=== PATIENT | female | born 1925 | race Caucasian/White ===

== ENCOUNTER → 2016-09-16 | Outpatient (CLI) | payer MEDICARE ==
[~2016-09-16] MED LIST: CALCTAB41 PO; FISH100049 PO; LOVA20TA2 PO; VITA-121 PO
[2016-09-16 11:28] LABS: MEAN CORPUSCULAR HEMOGLOBIN 32.1 pg (27.0-33.0); MEAN CORPUSCULAR HGB CONC 33.3 g/dl (32.0-36.5); MEAN CORPUSCULAR VOLUME 96.4 fl (80.0-96.0); RED CELL DISTRIBUTION WIDTH 12.8 % (11.5-14.5); WHITE BLOOD COUNT 5.7 K/mm3 (4.0-10.0)
[2016-09-16 11:30] LABS: INR 0.9
[2016-09-16 11:55] LABS: ALBUMIN 3.7 GM/DL (3.2-5.2); ALBUMIN/GLOBULIN RATIO 1.09 (1.00-1.93); ALKALINE PHOSPHATASE 78 U/L (45-117); ALT/SGPT 19 U/L (12-78); ANION GAP 4 MEQ/L (8-16); AST/SGOT 17 U/L (15-37); BILIRUBIN,TOTAL 0.4 MG/DL (0.2-1.0); BLOOD UREA NITROGEN 18 MG/DL (7-18); CALCIUM LEVEL 9.4 MG/DL (8.8-10.2); CARBON DIOXIDE LEVEL 34 MEQ/L (21-32); CHLORIDE LEVEL 103 MEQ/L (98-107); GLOMERULAR FILTRATION RATE > 60.0 (>32); GLUCOSE, FASTING 75 MG/DL (83-110); POTASSIUM SERUM 4.2 MEQ/L (3.5-5.1); SODIUM LEVEL 141 MEQ/L (136-145); TOTAL PROTEIN 7.1 GM/DL (6.4-8.2)
--- NOTE | 2016-09-16 17:03 | REP ---
CHEST, TWO VIEWS: HISTORY: Preoperative assessment. COMPARISON: None. In the right lung base, in the CP angle, there is a 7 mm sized nodular density. The lung krishna are otherwise clear. The heart is not enlarged. The bones are demineralized and there is mild degenerative changes. IMPRESSION: Right lung base nodular density as described above of uncertain etiology. It is quite dense, however, since there are no priors for comparison followup with contrast enhanced CT examination of the chest may be warranted. Signed by Truman Ren DO 09/16/2016 06:03 P
--- NOTE | 2016-09-16 22:35 | ECGEPIP ---
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 Poor R-wave progression. Low limb lead voltages. POSSIBLE ANTERIOR MYOCARDIAL INFARCTION, OF INDETERMINATE AGE Electronically Signed On 09-16-2016 22:34:37 EDT by Ja Benavides
== END ==
LOC: M ADMPAT 10:06
PROVIDERS: ATTEND Orthopaedic Surgery
DX: Z01.818 Encounter for other preprocedural examination (principal); M16.12 Unilateral primary osteoarthritis, left hip; R91.8 Other nonspecific abnormal finding of lung field; Z79.899 Other long term (current) drug therapy

== ENCOUNTER 2016-09-23 14:30 | Inpatient (IN) | payer MEDICARE ==
[2016-09-16 10:53] VITALS: BP 128/72
[~2016-09-23] VITALS: Ht 154.9 cm; Wt 53.0 kg
--- NOTE | 2016-09-25 11:33 | HPE ---
DATE OF ANTICIPATED ADMISSION: 09/29/2016 ATTENDING PHYSICIAN: Dr. Taran Watkins CHIEF COMPLAINT: Left hip pain and stiffness. HISTORY: The patient is a pleasant 89-year-old female presenting to the clinic with left hip pain and stiffness. She has failed to improve with conservative measures. She has pain with activities of daily living and weight bearing activities. She has consented for an elective left total hip arthroplasty with Dr. Watkins. Medical optimization pending with Dr. Prabhakar and is not present for review today. CURRENT MEDICATIONS: - Lovastatin 20 mg daily - vitamin D 2000 units daily - calcium with vitamin D 1000/800 mg daily - Tramadol 50 mg every 4 to 6 hours as needed - acetaminophen 500 mg one to two every 6 hours for breakthrough pain ALLERGIES: No known drug allergies. PAST MEDICAL HISTORY: 1. Hyperlipidemia. 2. Left hip osteoarthritis. PAST SURGICAL HISTORY: Oophorectomy. FAMILY HISTORY: Both parents with history of hypertension and heart disease. SOCIAL HISTORY: The patient denies smoking and denies alcohol use. The patient is and lives at home with her . REVIEW OF SYSTEMS: The patient denies fevers, chills, nausea, vomiting, or diarrhea. She denies chest pain, shortness of breath, or cough. She denies any recent upper respiratory infection or urinary tract infection symptoms. The patient continues to have left hip pain with weight bearing activities. PHYSICAL EXAMINATION: Well nourished, well developed female in no apparent distress. NECK: Supple without lymphadenopathy or jugular venous distention (JVD). HEART: Regular rate and rhythm. LUNGS: Clear to auscultation bilaterally. ABDOMEN: Soft, nontender to palpation. Bowel sounds are present. MUSCULOSKELETAL: Inspection of the left hip revealed no gross abnormalities. Her skin is intact. There is some hip irritability elicited with range of motion. Her calf is soft and nontender to palpation with no palpable cords noted. Pedal pulses are palpable. Capillary refill is brisk and her sensation is intact. VITAL SIGNS: Height is 5 feet 1 inches. Weight 120 pounds. Temperature 98.1, blood pressure 118/64, heart rate 64, respirations 16. LABORATORY DATA: Chest x-ray showed right lung base nodular density of uncertain etiology. Contrast enhanced CT examination of the chest may be warranted. EKG showed sinus rhythm, right ventricular conduction delay, poor R wave progression. Low limb lead voltages. Possible anterior myocardial infarction of indeterminate age. Urinalysis negative with no growth on urine culture. Comprehensive metabolic profile: Fasting glucose decreased to 75, BUN 18, creatinine for GFR is 0.80, GFR greater than 60. Sodium 141, potassium 4.2, chloride 103, carbon dioxide elevated at 34, anion gap decreased at 4, calcium 9.4, AST 17, ALT 19, alkaline phosphatase 78, total bilirubin 0.4, total protein 7.1, albumin 3.7, albumin-globulin ratio 1.09. Complete blood count: WBC 5.7, RBC 4.45, hemoglobin 14.3, hematocrit 42.9, platelets 273, ESR 18, prothrombin time 12.3, INR 0.90. Nasal and sinus culture showed normal elis. ASSESSMENT AND PLAN: 1. Left hip osteoarthritis with x-rays notable for end stage degenerative changes. The patient has consented for an elective left total hip arthroplasty with Dr. Watkins. Medical optimization is pending with Dr. Prabhakar. 2. Nodular density noted on chest x-ray. Contrast enhanced CT scan recommended. This should not delay surgery. [facility]
[2016-09-29] VITALS (10 sets, daily range): BP systolic 119–144; BP diastolic 56–77; O2SAT 98
[2016-09-29] MEDS ORDERED: LR 1,000 ML IV SCH ×2 (07:00→11:00)
[2016-09-29] MEDS ORDERED: ceFAZolin SOD 1 GM in D5W MINI-BAG PLUS 50 ML IV ONE (07:00)
[2016-09-29] MEDS ORDERED: TRANEXAMIC ACID 100 MG/ML 10ML VIAL As Ordered ONE (07:20)
[2016-09-29] MEDS ORDERED: EPINEPHrine INJ 1 MG/ML 1ML AMP As Ordered ONE (07:21)
[2016-09-29] MEDS ORDERED: BUPIVACAINE HCL 0.25% 30 ML VIAL As Ordered ONE (07:21)
[2016-09-29] MEDS ORDERED: ceFAZolin 1GM INJ (J0690) As Ordered ONE (07:21)
[2016-09-29] MEDS ORDERED: fentaNYL 100 MCG/2 ML INJECTION (J3010) As Ordered ONE ×2 (07:51→08:39)
[2016-09-29] MEDS ORDERED: MIDAZOLAM INJ 2 MG/2 ML VIAL (J2250) As Ordered ONE (07:51)
--- NOTE | 2016-09-29 08:27 | IPN ---
DATE: 09/29/2016 The patient is seen and examined. She wished to have a left total hip arthroplasty. She understands the nature this, the risks of bleeding, infection, damage to nerves, vessels, persistent pain, wear loosening, dislocation, leg length inequality, blood clots, medical problems, among others. Preop clearance has been obtained. She wishes to proceed.
[2016-09-29] MEDS ORDERED: PATIENT IS CURRENTLY ON AN ON-Q PAIN BUSTER PAIN RELIEF SYSTEM XX SCH (08:45)
[2016-09-29] MEDS ORDERED: PROPOFOL 200 MG/20 ML VIAL As Ordered ONE (09:05)
[2016-09-29] MEDS ORDERED: LIDOCAINE 2% INJ 100 MG/5 ML SDV (FOR ANES.) As Ordered ONE (09:23)
[2016-09-29] MEDS ORDERED: PHENYLephrine HCL 500 MCG/5 ML (100MCG/ML) SYRINGE (J2370) As Ordered ONE (09:34)
[2016-09-29] MEDS ORDERED: MORPHINE 1MG/ML IN 0.9% NACL 100ML IV BAG As Ordered ONE (10:05)
[2016-09-29] MEDS ORDERED: NALOXONE INJ 0.4 MG/1 ML VIAL (J2310) IV PRN (11:00)
[2016-09-29] MEDS ORDERED: FLEET ENEMA PR PRN (11:00)
[2016-09-29] MEDS ORDERED: MORPHINE 1MG/ML IN 0.9% NACL 100ML IV BAG IV PRN (11:00)
[2016-09-29] MEDS ORDERED: ACETAMINOPHEN TAB 650MG DOSE (2X325MG) PO PRN (11:00)
[2016-09-29] MEDS ORDERED: fentaNYL 100 MCG/2 ML INJECTION (J3010) IV PRN (11:00)
[2016-09-29] MEDS ORDERED: diphenhydrAMINE INJ 50MG/ML VIAL (J1200) IV PRN (11:00)
[2016-09-29] MEDS ORDERED: ONDANSETRON 4MG/2ML VIAL (J2405) IV PRN ×3 (11:00)
[2016-09-29] MEDS ORDERED: EPIDURAL/PCA KEYS XX PRN (11:00)
[2016-09-29] MEDS ORDERED: NALBUPHINE HCL 10 MG/ML AMP (J2300) IV PRN (11:00)
[2016-09-29] MEDS ORDERED: WARFARIN SOD 5 MG TAB PO SCH (17:00)
[2016-09-29] MEDS: ceFAZolin SOD 1 GM in D5W MINI-BAG PLUS 50 ML IV SCH (17:33)
[2016-09-29] MEDS: LR 1,000 ML IV SCH ×2 (17:35→19:41)
--- NOTE | 2016-09-29 22:47 | RO ---
DATE OF PROCEDURE: 09/29/2016 PREOPERATIVE DIAGNOSIS: Left hip osteoarthritis. POSTOPERATIVE DIAGNOSIS: Left hip osteoarthritis. PROCEDURE: Left total hip arthroplasty using a [place] size 50 cup, a 32 head standard liner and a size 6 standard [place] stem Press-Fit. SURGEON: Dr. Taran Watkins LABORER AMMUNITION ASSEMBLY: Hussein Sena ANESTHESIA: Spinal. ESTIMATED BLOOD LOSS: 50 mL. COMPLICATIONS: None. INDICATIONS: This is a very healthy 89-year-old woman who has had some persistent left hip pain that has limited her ability to get around, has pain at rest, etc. She wished to go ahead with a hip replacement, having failed conservative management. She understood the nature of procedure, risks of bleeding for bleeding, infection, damage to nerves, vessels, persistent pain, wear, loosening, dislocation, leg length inequality, blood clots, medical problems, among others. DESCRIPTION OF PROCEDURE: The patient was taken to the operating room, placed in supine position after spinal anesthesia was induced. She has then turned into the right lateral decubitus position on the [place] positioner and all areas were padded appropriately. The left hip was prepped and draped in usual sterile fashion. Time-out was performed. I created a longitudinal incision over the lateral aspect of the hip. Sharp dissection was carried down through subcutaneous tissue. I incised the fascia chris longitudinally, controlled hemostasis with the cautery. I then divided the anterior 40% of the abductors off of the proximal femur and dissected down to the femoral neck and splitting the labrum. As we externally rotated the femur, I was able to expose down to the lesser trochanter and then we were able to dislocate the hip without difficulty. I used the canal initiating reamer followed by the canal finding reamer, lateralizing reamer and sequentially reamed up to a size 6, which is what we templated for preoperatively and this was an excellent fit for the reamer. I then removed the femoral head with a saw using a broach as a template and cutting this about a half a fingerbreadth up from the lesser trochanter. I then prepared the acetabulum, anterior post retractors were placed and I removed the soft tissue from around the acetabulum and from the medial wall. I then very carefully reamed starting with a 46 reamer and medialized it to some degree until I got down to the floor and sequentially reamed up to a 49, which had good bleeding bone, good purchase and good concentric reaming. There were some acetabular cysts that were curetted out and bone graft was placed. We had irrigated prior to this. We then placed the size 50 cup in the appropriate amount of anteversion and horizontal tilt and impacted this in place using the guide to assist. I then made sure this was well seated. The apex hole eliminator was placed and then placed the size 50 x 32 polyethylene neutral, impacted this in place. This was the Ultrex liner. I made sure the liner was seated, directed our attention back to the femur, used the IntelliGeneScanie cutter to remove some of bone proximally and then sequentially broached up to a size 6, which had an excellent fit and fill. I was careful not to impact with too much force because of the possible fragility of her bone, but I did not feel like she needed a cemented component. Excellent tight fit was noted. We trialed off this, the +1 neck and 32 ball seemed to have excellent stability, excellent external rotation, extension and excellent flexion and internal rotation. There was a tiny spur anteriorly that I had to take off the acetabulum. I was very pleased with these components. The wound was then irrigated after I removed the trial femur and impacted the actual size 6 stem standard down, and this had an excellent fit and was very tight. I dried the Hernandez taper, impacted on the 32 +1 ball and made sure this was well seated. We reduced the hip, put the hip through a range of motion and again, was very pleased with stability. There was minimal shuck in full extension and very stable in flexion internal rotation, extension external rotation. There was no impingement. Copious irrigation was then performed. TXA solution was introduced. I closed the deep layer with #1 Vicryl suture closing the minimus. The abductor was closed with #1 Vicryl suture with several stitches being placed through the bone, and the fascia chris was closed with interrupted #1 Vicryl suture followed by a running Stratafix suture in each direction that the assistant financial accountant and I placed. Irrigating at each level. We then closed the subcu with #2-0 Vicryl and the skin with scott. I placed the catheter for the PainBuster just anterior to the hip incision down along the femoral neck. I was able to feel the femoral neck and insert the catheter without difficulty. We primed this with 10 mL and attached to the thigh in the usual fashion. Sterile dressing was applied. She was taken to recovery room in stable condition. There were no known complications. The plan will be routine postoperative. The assistant financial accountant was instrumental holding retractors and assisting in dislocation and reducing the hip, and assisting in wound closure, etc. She is an extremely healthy patient, and I think we will contact the hospitalist for medical assistance only if there are issues that arise.
[2016-09-30] MEDS: ceFAZolin SOD 1 GM in D5W MINI-BAG PLUS 50 ML IV SCH (00:13)
[2016-09-30 00:15] VITALS: BP 104/54
[2016-09-30 04:15] VITALS: BP 107/53
[2016-09-30] MEDS ORDERED: ONDANSETRON 4 MG TAB (S0181) PO PRN (07:00)
[2016-09-30] MEDS ORDERED: PERCOCET 5MG/325MG TAB PO PRN (07:00)
[2016-09-30 07:13] LABS: MEAN CORPUSCULAR HEMOGLOBIN 32.1 pg (27.0-33.0); MEAN CORPUSCULAR HGB CONC 33.3 g/dl (32.0-36.5); MEAN CORPUSCULAR VOLUME 96.2 fl (80.0-96.0); RED CELL DISTRIBUTION WIDTH 12.6 % (11.5-14.5); WHITE BLOOD COUNT 6.7 K/mm3 (4.0-10.0)
[2016-09-30 07:19] LABS: INR 1.25
[2016-09-30] MEDS: MIRALAX *UNIT DOSE* 17GM PACKET PO SCH (09:16)
[2016-09-30] MEDS: MOM 30ML SUSPENSION UDC PO SCH (09:16)
[2016-09-30] MEDS: SENOKOT S TAB PO SCH ×2 (09:16→21:29)
--- NOTE | 2016-09-30 09:26 | REP ---
LEFT HIP, TWO VIEWS: HISTORY: Hip replacement. The patient is status post left total hip replacement. There is no acute fracture or dislocation. A small amount of subcutaneous air and surgical scott are present in the overlying soft tissue. IMPRESSION: The patient is status post left total hip replacement. There is anatomic alignment. Signed by Eric Pavon MD 09/30/2016 09:52 A
[2016-09-30 10:00] VITALS: BP 115/53
[2016-09-30 14:00] VITALS: BP 107/51
[2016-09-30 14:55] VITALS: O2SAT 92
[2016-09-30 15:07] LABS: ANION GAP 6 MEQ/L (8-16); BLOOD UREA NITROGEN 11 MG/DL (7-18); CALCIUM LEVEL 8.5 MG/DL (8.8-10.2); CARBON DIOXIDE LEVEL 33 MEQ/L (21-32); CHLORIDE LEVEL 98 MEQ/L (98-107); CREATININE FOR GFR 0.73 MG/DL (0.55-1.02); GLOMERULAR FILTRATION RATE > 60.0 (>32); GLUCOSE, FASTING 111 MG/DL (83-110); POTASSIUM SERUM 3.8 MEQ/L (3.5-5.1); SODIUM LEVEL 137 MEQ/L (136-145)
[2016-09-30] MEDS ORDERED: WARFARIN SOD 5 MG TAB PO ONE (17:00)
[2016-09-30] MEDS: PERCOCET 5MG/325MG TAB PO PRN (17:23)
[2016-09-30 22:00] VITALS: BP 124/58
[2016-10-01] MEDS: PERCOCET 5MG/325MG TAB PO PRN (03:27)
[2016-10-01 06:00] VITALS: BP 122/51
[2016-10-01 06:57] LABS: MEAN CORPUSCULAR HEMOGLOBIN 32.4 pg (27.0-33.0); MEAN CORPUSCULAR HGB CONC 33.8 g/dl (32.0-36.5); RED CELL DISTRIBUTION WIDTH 13.1 % (11.5-14.5); WHITE BLOOD COUNT 7.8 K/mm3 (4.0-10.0)
[2016-10-01 07:02] LABS: INR 1.97
[2016-10-01] MEDS: MIRALAX *UNIT DOSE* 17GM PACKET PO SCH (08:58)
[2016-10-01] MEDS: MOM 30ML SUSPENSION UDC PO SCH (08:58)
[2016-10-01] MEDS: SENOKOT S TAB PO SCH ×2 (08:59→21:34)
[2016-10-01 14:00] VITALS: BP 107/52
[2016-10-01] MEDS: traMADol 50 MG TAB PO PRN ×2 (14:12→22:52)
[2016-10-01] MEDS ORDERED: WARFARIN SOD 2.5 MG TAB PO ONE (17:00)
[2016-10-01 22:00] VITALS: BP 115/56
[2016-10-02 06:00] VITALS: BP 105/54
[2016-10-02] MEDS: traMADol 50 MG TAB PO PRN ×2 (06:52→17:08)
[2016-10-02 07:30] LABS: INR 1.64
[2016-10-02] MEDS: MOM 30ML SUSPENSION UDC PO SCH (09:00)
[2016-10-02] MEDS: MIRALAX *UNIT DOSE* 17GM PACKET PO SCH (09:00)
[2016-10-02] MEDS: SENOKOT S TAB PO SCH ×2 (09:39→20:18)
[2016-10-02 14:00] VITALS: BP 125/61
[2016-10-02] MEDS ORDERED: WARFARIN SOD 5 MG TAB PO ONE (17:00)
[2016-10-02 22:00] VITALS: BP 150/67
[2016-10-03] MEDS: traMADol 50 MG TAB PO PRN ×2 (05:55→12:33)
[2016-10-03 06:00] VITALS: BP 105/53
[2016-10-03 07:11] LABS: INR 1.55
[2016-10-03] MEDS ORDERED: TRAM50TA2 PO ×2 (07:54→09:07)
[2016-10-03] MEDS ORDERED: COUM2.5T11 PO ×2 (07:54→09:07)
[2016-10-03] MEDS: MOM 30ML SUSPENSION UDC PO SCH (08:50)
[2016-10-03] MEDS: SENOKOT S TAB PO SCH (08:50)
[2016-10-03] MEDS: MIRALAX *UNIT DOSE* 17GM PACKET PO SCH (08:50)
--- NOTE | 2016-10-08 09:40 | DSES ---
DATE OF ADMISSION: 09/29/2016 DATE OF DISCHARGE: 10/03/2016 Admitting Diagnosis: Left Hip Osteoarthritis. Discharge Diagnosis: Status Post Left Hip Arthroplasty HISTORY OF PRESENT ILLNESS: This is a pleasant elderly female with left hip symptomatic osteoarthritis. She consented for a left total hip arthroplasty per Dr. Taran Watkins. Medical optimization per Dr. Prabhakar. X-rays are consistent with advanced osteoarthritis. OPERATION PERFORMED: Left total hip arthroplasty. HOSPITAL COURSE: The patient uneventfully underwent a left total hip arthroplasty under spinal anesthesia on 09/29/2016. Our hospital team discharged the patient on 10/03/2016 with the follow instructions. Postoperative instructions included weightbearing as tolerated about the left lower extremity with walker. Coumadin and thromboembolic deterrent (JAVIER) stockings times 30 days. Diet is regular. Percocet as needed, pain. Optifoam home dressing change after 4 days time. Followup at orthopedic group 12-14 days for wound check, staple removal. The patient is encouraged to contact our office sooner with increased pain, drainage, redness, numbness and tingling down lower extremity, fever greater than 101 or further concerns. [facility]
== END 2016-10-03 13:50 | disposition home health service (06) | DRG 470 ==
LOC: M OR 09-29 06:48 → M MS5PR 09-29 11:35
PROVIDERS: ADMIT Orthopaedic Surgery; ATTEND Orthopaedic Surgery
PROC: 0SRB0JA Replacement of Left Hip Joint with Synthetic Substitute, Uncemented, Open Approach (ICD-10-PCS; principal; 2016-09-29 08:30)
DX: M16.12 Unilateral primary osteoarthritis, left hip (principal); E78.5 Hyperlipidemia, unspecified